=== PATIENT | male | born 1975 | race Caucasian/White ===

== ENCOUNTER 2025-07-06 09:31 | Emergency (ER) | payer BC ==
[2025-07-06 10:07] LABS: #Basophils 0.03 10x3/uL (0.0-0.2); #Eosinophils 0.20 10x3/uL (0.0-0.7); #Monocytes 0.51 10x3/uL (0.11-0.59); #Neutrophils 3.70 10x3/uL (1.40-6.50); %Basophils 0.6 % (0.0-1.0); %Eosinophils 3.7 % (0.0-10.0); %Lymphocytes 17.5 % (21.0-51.0); %Monocytes 9.4 % (0.0-10.0); %Neutrophils 68.2 % (42.0-75.0); Hematocrit 41.2 % (42.0-52.0); Hemoglobin 13.9 g/dL (14.0-18.0); Mean Corpuscular Hemoglobin 30.8 pg (27.0-31.0); Mean Corpuscular Volume 91.4 fL (78.0-98.0); Platelet Count 202 10x3/uL (130-400); Red Blood Cell (RBC) Count 4.51 mill/uL (4.70-6.10); White Blood Cell (WBC) Count 5.42 10x3/uL (4.8-10.8)
[2025-07-06 10:38] LABS: ALT (SGPT) 33 U/L (Less than 45); AST (SGOT) 29 U/L (11-34); Albumin 3.9 g/dL (3.1-4.5); Alkaline Phosphatase 71 U/L (40-110); Anion Gap 16 mmol/L (10-20); BUN (Urea Nitrogen) 9 mg/dL (8.9-20.6); Bilirubin, Total 0.6 mg/dL (0.3-1.2); Calc. Creatinine Clearance 0 mL/min (70-130); Calcium 9.7 mg/dL (7.8-10.44); Carbon Dioxide 27 mmol/L (22-29); Chloride 102 mmol/L (98-107); Globulin 3.7 g/dL (2.4-3.5); Glucose 134 mg/dL (70-105); Potassium 3.7 mmol/L (3.5-5.1); Sodium 141 mmol/L (136-145)
== END 2025-07-06 11:30 | disposition home or self-care (01) ==
LOC: ERS 09:31
DX: R07.89 Other chest pain (principal); F17.220 Nicotine dependence, chewing tobacco, uncomplicated
CPT/HCPCS: 71045; 80053; 84484; 85025; 93005; 94760

== ENCOUNTER 2025-07-16 17:35 | Inpatient (IN) | payer BC ==
[2025-07-16 18:20] LABS: #Basophils 0.06 10x3/uL (0.0-0.2); #Eosinophils 0.21 10x3/uL (0.0-0.7); #Monocytes 0.78 10x3/uL (0.11-0.59); #Neutrophils 6.75 10x3/uL (1.40-6.50); %Basophils 0.6 % (0.0-1.0); %Eosinophils 2.1 % (0.0-10.0); %Lymphocytes 19.6 % (21.0-51.0); %Monocytes 7.9 % (0.0-10.0); %Neutrophils 68.8 % (42.0-75.0); Hematocrit 43.5 % (42.0-52.0); Hemoglobin 14.8 g/dL (14.0-18.0); Mean Corpuscular Hemoglobin 30.4 pg (27.0-31.0); Mean Corpuscular Volume 89.3 fL (78.0-98.0); Platelet Count 305 10x3/uL (130-400); Red Blood Cell (RBC) Count 4.87 mill/uL (4.70-6.10); White Blood Cell (WBC) Count 9.83 10x3/uL (4.8-10.8)
[2025-07-16 18:25] LABS: Bacteria/HPF None Seen HPF (None Seen); CAUTI Indications for Culture Dysuria,urgency,freq; Glucose, Urine (Dipstick) 30 mg/dL (Negative); Leukocyte Negative Leu/uL (Negative); Protein, Urine (Dipstick) 100 mg/dL (Neg-Trace); RBC/HPF 0-3 HPF (0-3); Specific Gravity, Urine 1.021 (1.002-1.036); WBC/HPF 0-3 HPF (0-3)
[2025-07-16 18:30] LABS: Urine Culture Reflex No No
[2025-07-16 18:37] LABS: ALT (SGPT) 47 U/L (Less than 45); AST (SGOT) 34 U/L (11-34); Albumin 4.4 g/dL (3.1-4.5); Alkaline Phosphatase 71 U/L (40-110); Anion Gap 17 mmol/L (10-20); BUN (Urea Nitrogen) 10 mg/dL (8.9-20.6); Bilirubin, Total 1.3 mg/dL (0.3-1.2); Calc. Creatinine Clearance 0 mL/min (70-130); Calcium 10.2 mg/dL (7.8-10.44); Carbon Dioxide 24 mmol/L (22-29); Chloride 99 mmol/L (98-107); Globulin 3.7 g/dL (2.4-3.5); Glucose 107 mg/dL (70-105); Potassium 3.4 mmol/L (3.5-5.1); Sodium 137 mmol/L (136-145)
[2025-07-16] MEDS ORDERED: Potassium Bicarbonate/Cit Ac 20 MEQ TAB ONE (19:33)
[2025-07-16] MEDS ORDERED: Ondansetron PF 4 MG/2 ML Vial IVP PRN (20:40)
[2025-07-16 23:38] VITALS: BMI 29.7
[2025-07-17 04:52] LABS: #Basophils 0.05 10x3/uL (0.0-0.2); #Eosinophils 0.24 10x3/uL (0.0-0.7); #Monocytes 0.56 10x3/uL (0.11-0.59); #Neutrophils 3.83 10x3/uL (1.40-6.50); %Basophils 0.7 % (0.0-1.0); %Eosinophils 3.5 % (0.0-10.0); %Lymphocytes 30.9 % (21.0-51.0); %Monocytes 8.2 % (0.0-10.0); %Neutrophils 55.8 % (42.0-75.0); Hematocrit 37.5 % (42.0-52.0); Hemoglobin 12.4 g/dL (14.0-18.0); Mean Corpuscular Hemoglobin 30.8 pg (27.0-31.0); Mean Corpuscular Volume 93.1 fL (78.0-98.0); Platelet Count 227 10x3/uL (130-400); Red Blood Cell (RBC) Count 4.03 mill/uL (4.70-6.10); White Blood Cell (WBC) Count 6.86 10x3/uL (4.8-10.8)
[2025-07-17 05:16] LABS: Anion Gap 11 mmol/L (10-20); BUN (Urea Nitrogen) 14 mg/dL (8.9-20.6); Calc. Creatinine Clearance 79 mL/min (70-130); Calcium 8.8 mg/dL (7.8-10.44); Carbon Dioxide 20 mmol/L (22-29); Chloride 110 mmol/L (98-107); Glucose 111 mg/dL (70-105); Magnesium 2.0 mg/dL (1.6-2.6); Potassium 4.1 mmol/L (3.5-5.1); Sodium 137 mmol/L (136-145)
[2025-07-17 08:17] LABS: Protein, Urine Random Quant 156 mg/dL (1-14); Sodium, Urine Less than 20 mmol/L (Not Available); Urea Nitrogen, Random Urine 460 mg/dl
[2025-07-17] MEDS: Acetaminophen 325 MG TAB PO PRN (20:25)
[2025-07-18 05:12] LABS: #Basophils 0.04 10x3/uL (0.0-0.2); #Eosinophils 0.15 10x3/uL (0.0-0.7); #Monocytes 0.37 10x3/uL (0.11-0.59); #Neutrophils 2.76 10x3/uL (1.40-6.50); %Basophils 0.8 % (0.0-1.0); %Eosinophils 3.0 % (0.0-10.0); %Lymphocytes 33.9 % (21.0-51.0); %Monocytes 7.3 % (0.0-10.0); %Neutrophils 54.6 % (42.0-75.0); Hematocrit 35.3 % (42.0-52.0); Hemoglobin 11.6 g/dL (14.0-18.0); Mean Corpuscular Hemoglobin 30.9 pg (27.0-31.0); Mean Corpuscular Volume 93.9 fL (78.0-98.0); Platelet Count 189 10x3/uL (130-400); Red Blood Cell (RBC) Count 3.76 mill/uL (4.70-6.10); White Blood Cell (WBC) Count 5.05 10x3/uL (4.8-10.8)
[2025-07-18 05:29] LABS: Anion Gap 11 mmol/L (10-20); BUN (Urea Nitrogen) 13 mg/dL (8.9-20.6); CK (CPK) 120 U/L (30-200); Calc. Creatinine Clearance 113 mL/min (70-130); Calcium 8.6 mg/dL (7.8-10.44); Carbon Dioxide 28 mmol/L (22-29); Chloride 107 mmol/L (98-107); Glucose 110 mg/dL (70-105); Potassium 4.0 mmol/L (3.5-5.1); Sodium 142 mmol/L (136-145)
[2025-07-18 07:59] VITALS: BP 132/80; TEMP 98.1
[2025-07-18] MEDS ORDERED: Enoxaparin 40 MG (0.4 mL) SYRINGE SC SCH (21:00)
[2025-07-22 12:12] LABS: Metanephrine,Plasma <25.0 pg/mL (0.0-88.0); Normetanephrine,Pl 62.4 pg/mL (0.0-218.9)
[2025-07-22 13:37] LABS: 5 HIAA,Urine 1.8 mg/L (Undefined); 5 HIAA-24H Urine 5.5 mg/24 hr (0.0-14.9)
== END 2025-07-18 14:35 | disposition home or self-care (01) | DRG 683 ==
LOC: ERS 17:35 → MSONC 19:29
PROVIDERS: ADMIT Internal Medicine; ATTEND Hospitalist
DX: N17.9 Acute kidney failure, unspecified (principal); E87.21 Acute metabolic acidosis; M62.82 Rhabdomyolysis; E87.6 Hypokalemia; Z88.2 Allergy status to sulfonamides; Z91.030 Bee allergy status; I10 Essential (primary) hypertension; E78.5 Hyperlipidemia, unspecified; Z79.899 Other long term (current) drug therapy; M19.90 Unspecified osteoarthritis, unspecified site; F32.A Depression, unspecified; F17.220 Nicotine dependence, chewing tobacco, uncomplicated; Z86.16 Personal history of COVID-19; I15.9 Secondary hypertension, unspecified; R06.02 Shortness of breath; I95.2 Hypotension due to drugs
CPT/HCPCS: 36415; 80048; 80053; 81001; 82088; 82550; 82570; 83497; 83605; 83735; 83835; 84156; 84244; 84300; 84484; 84540; 85025; 93005; 96360; 96361; J7030